=== PATIENT | male | born 1995 | race Caucasian/White ===

== ENCOUNTER 2020-11-30 11:11 | Emergency (ER) | payer SELFPAY ==
[~2020-11-30] VITALS: Ht 190.5 cm; Wt 172.4 kg
--- NOTE | 2020-11-30 11:46 | NUR ---
BIBS FOR C/O HEADACHE X 8 DAYS, NO RELIEF FROM IMITREX NOR ADVIL, WORSE ON LEFT SIDE OF THE HEAD, DENIES RECENT FALL OR HEAD INJURY. RATES PAIN 7/10. RESPIRATION REGULAR AND UNLABORED. WILL CONTINUE TO MONITOR THE PATIENT.
[2020-11-30] MEDS ORDERED: diphenhydrAMINE HCL 50 MG/ML VIAL IV ONE (12:00)
[2020-11-30] MEDS ORDERED: PROCHLORPERAZINE EDISYLATE 10 MG/2 ML VIAL IVP ONE (12:00)
[2020-11-30] MEDS ORDERED: IV NS 0.9% 1,000 ML BAG IV ONE (12:00)
[2020-11-30] MEDS ORDERED: diphenhydrAMINE HCL 50 MG/ML VIAL ONE (12:09)
[2020-11-30] MEDS ORDERED: PROCHLORPERAZINE EDISYLATE 10 MG/2 ML VIAL ONE (12:10)
[2020-11-30 12:18] LABS: HEMATOCRIT 45 % (39-51); HEMOGLOBIN 15.3 g/dL (13.5-17.5); LYMPHOCYTES # (AUTO) 1.5 K/uL (0.8-4.8); LYMPHOCYTES % (AUTO) 22.2 % (20.0-44.0); MEAN CORPUSCULAR HGB CONC 34 g/dl (31.0-36.0); MEAN CORPUSCULAR VOLUME 93 fL (80-96); MONOCYTES # (AUTO) 0.3 K/uL (0.1-1.30); MONOCYTES % (AUTO) 5.2 % (2.0-12.0); NEUTROPHILS # (AUTO) 4.5 K/uL (1.8-8.9); NEUTROPHILS % (AUTO) 68.6 % (43.0-81.0); PLATELET COUNT (AUTO) 232 K/uL (150-450); RED BLOOD CELL COUNT(AUTO) 4.81 MIL/uL (4.5-6.0); WHITE BLOOD COUNT (AUTO) 6.6 K/uL (4.3-11.0)
[2020-11-30 12:43] LABS: CALCIUM, SERUM 8.7 mg/dL (8.5-10.1); CREATININE 0.9 mg/dL (0.6-1.3)
--- NOTE | 2020-11-30 12:43 | NUR ---
Patient does not wish to proceed with medical care recommended by Dr. Brown. Patient given information related to possible complications, up to and including , which could occur as a result of leaving the hospital at this time. Patient verbalizes understanding of risks involved due to leaving against medical advice. Patient has signed AMA form.
[2020-11-30 12:49] LABS: ALBUMIN 3.7 g/dL (3.4-5.0); BILIRUBIN,DIRECT 0.3 mg/dL (0.0-0.2)
[2020-11-30 12:55] VITALS: BP 131/75
== END 2020-11-30 12:55 | disposition left against medical advice (07) ==
LOC: ER 11:11
DX: R51.9 Headache, unspecified (principal); G25.71 Drug induced akathisia; R94.31 Abnormal electrocardiogram [ECG] [EKG]; Z88.6 Allergy status to analgesic agent; Z88.5 Allergy status to narcotic agent
CPT/HCPCS: 36415; 80048; 80076; 82962; 85025; 85730; 93005; 96361; 96374; 96375; 99284; J0780; J1200; J7030